=== PATIENT | female | born 1955 | race Caucasian/White ===

== ENCOUNTER 2021-08-13 04:37 | Day surgery (SDC) | payer OTHER, BC ==
[2021-08-08 13:06] VITALS: BMI 26.7
[2021-08-13] MEDS ORDERED: BUPIVACAINE HCL/PF 0.5% (5MG/ML) 10 ML VIAL IJ ONE ×2 (13:24)
[2021-08-13] MEDS ORDERED: IOHEXOL 180 MG/1 ML ML IJ ONE (13:25)
[2021-08-13] MEDS ORDERED: BUPIVACAINE HCL/PF 0.5% (5MG/ML) 10 ML VIAL ONE (13:31)
[2021-08-13] MEDS ORDERED: LIDOCAINE HCL/PF 1% SDV 5ML VIAL ONE (13:32)
[2021-08-13 15:14] VITALS: BP 137/80; PULSE 75; TEMP 97.3
== END 2021-08-13 15:15 | disposition home or self-care (01) ==
LOC: JASU-SURG 04:37
PROVIDERS: ATTEND Pain Medicine Pain Medicine
PROC: BR14YZZ Fluoroscopy of Cervical Facet Joint(s) using Other Contrast (ICD-10-PCS; 2021-08-13)
PROC: 3E0T3BZ Introduction of Anesthetic Agent into Peripheral Nerves and Plexi, Percutaneous Approach (ICD-10-PCS; principal; 2021-08-13 15:00)
DX: M47.812 Spondylosis without myelopathy or radiculopathy, cervical region (principal)
CPT/HCPCS: 76000-TC-FY

== ENCOUNTER 2021-09-17 04:36 | Day surgery (SDC) | payer OTHER, BC ==
[2021-09-16 13:59] VITALS: BMI 26.5
[2021-09-17] MEDS ORDERED: BUPIVACAINE HCL/PF 0.5% (5 MG/ML) 30 ML VIAL IJ ONE ×2 (12:40)
[2021-09-17 14:09] VITALS: BP 131/70; PULSE 64; TEMP 97.1
== END 2021-09-17 13:25 | disposition home or self-care (01) ==
LOC: JASU-SURG 04:36
PROVIDERS: ATTEND Pain Medicine Pain Medicine
PROC: 3E0T33Z Introduction of Anti-inflammatory into Peripheral Nerves and Plexi, Percutaneous Approach (ICD-10-PCS; 2021-09-17)
PROC: 3E0T3BZ Introduction of Anesthetic Agent into Peripheral Nerves and Plexi, Percutaneous Approach (ICD-10-PCS; principal; 2021-09-17 11:30)
DX: M47.812 Spondylosis without myelopathy or radiculopathy, cervical region (principal)
CPT/HCPCS: 76000-TC-FY

== ENCOUNTER 2021-10-15 04:48 | Day surgery (SDC) | payer OTHER, BC ==
[2021-10-11 15:30] VITALS: BMI 26.5
[2021-10-15] MEDS ORDERED: LIDOCAINE HCL/PF 1% SDV 5ML VIAL ONE (07:40)
[2021-10-15] MEDS ORDERED: BUPIVACAINE HCL/PF 0.75% 10 ML VIAL ONE (07:40)
[2021-10-15] MEDS ORDERED: DEXAMETHASONE SOD PHOSPHATE 10 MG/1 ML VIAL ONE (07:41)
[2021-10-15] MEDS ORDERED: LIDOCAINE HCL/PF 2% SDV 5ML VIAL ONE (07:51)
[2021-10-15] MEDS ORDERED: LIDOCAINE HCL/PF 2% SDV 5ML VIAL PNB ONE ×2 (10:47→10:51)
[2021-10-15] MEDS ORDERED: LIDOCAINE HCL 1% PRESERVATIVE FREE - 30ML VIAL IJ ONE ×2 (10:47→10:51)
[2021-10-15] MEDS ORDERED: BUPIVACAINE HCL/PF 0.25% (2.5MG/ML) 10 ML VIAL IJ ONE ×2 (10:48→10:52)
[2021-10-15] MEDS ORDERED: DEXAMETHASONE SOD PHOSPHATE 10 MG/1 ML VIAL IM ONE ×2 (10:48→10:51)
[2021-10-15 11:52] VITALS: BP 133/69; PULSE 66; TEMP 98
== END 2021-10-15 11:53 | disposition home or self-care (01) ==
LOC: JASU-SURG 04:48
PROVIDERS: ATTEND Pain Medicine Pain Medicine
PROC: BR14YZZ Fluoroscopy of Cervical Facet Joint(s) using Other Contrast (ICD-10-PCS; 2021-10-15)
PROC: 3E0T3TZ Introduction of Destructive Agent into Peripheral Nerves and Plexi, Percutaneous Approach (ICD-10-PCS; principal; 2021-10-15 09:45)
DX: M47.812 Spondylosis without myelopathy or radiculopathy, cervical region (principal)
CPT/HCPCS: 76000-TC-FY; J1100